=== PATIENT | female | born 1995 | race Caucasian/White ===

== ENCOUNTER 2017-03-15 14:13 | Emergency (ER) | payer OTHER ==
[2017-03-15] MEDS ORDERED: LEVETIRACETAM INJ/PF 500 MG/5 ML SDV IV ONE (16:34)
[2017-03-15] MEDS ORDERED: NORMAL SALINE 500 ML IV PRN (16:36)
[2017-03-15] MEDS ORDERED: LEVETIRACETAM 1000 MG/NACL-ISO 1,000 MG/100 ML RTUPB IV PRN (17:28)
[2017-03-15 17:55] LABS: ABSOLUTE LYMPHOCYTES (AUTO) 1.2 10^3/uL (0.5-4.7); ABSOLUTE MONOCYTES (AUTO) 0.5 10^3/uL (0.1-1.4); ABSOLUTE NEUT (AUTO) 2.6 10^3/uL (1.7-8.2); BASOPHILS % (AUTO) 0.4 % (0-2); EOSINOPHILS % (AUTO) 0.3 % (0-6); HEMATOCRIT 36.2 % (36.0-47.0); HEMOGLOBIN 12.4 g/dL (12.0-15.5); LYMPHOCYTES % (AUTO) 27.7 % (13-45); MEAN CORPUSCULAR HEMOGLOBIN 31.4 pg (27.0-33.4); MEAN CORPUSCULAR HGB CONC 34.2 g/dL (32.0-36.0); MEAN CORPUSCULAR VOLUME 92 fl (80-97); MONOCYTES % (AUTO) 10.9 % (3-13); PLATELET COUNT 194 10^3/uL (150-450); RED BLOOD COUNT 3.94 10^6/uL (3.72-5.28); RED CELL DISTRIBUTION WIDTH 12.9 % (11.5-14.0); SEGMENTED NEUTROPHILS % (AUTO) 60.7 % (42-78); TOTAL CELLS COUNTED % (AUTO) 100 %; WHITE BLOOD COUNT 4.2 10^3/uL (4.0-10.5)
[2017-03-15 18:18] LABS: ALANINE AMINOTRANSFERASE 25 U/L (5-35); ALBUMIN 4.4 g/dL (3.7-5.6); ALKALINE PHOSPHATASE 60 U/L (50-135); ANION GAP 11 (5-19); ASPARTATE AMINO TRANSFERASE 18 U/L (5-30); BILIRUBIN,DIRECT 0.2 mg/dL (0.0-0.4); BILIRUBIN,TOTAL 0.3 mg/dL (0.2-1.3); BLOOD UREA NITROGEN 12 mg/dL (7-20); CALCIUM 9.9 mg/dL (8.4-10.2); CARBON DIOXIDE 26 mmol/L (22-30); CHLORIDE 107 mmol/L (98-107); GLUCOSE 91 mg/dL (75-110); LIPASE 79.3 U/L (23-300); SODIUM 144.1 mmol/L (137-145); TOTAL PROTEIN 6.8 g/dL (6.3-8.2)
--- NOTE | 2017-03-15 18:25 | ER Document Report ---
ED General - General Chief Complaint: Lower Abdominal Pain Stated Complaint: FEVER Time Seen by Provider: 03/15/17 15:40 Mode of Arrival: Ambulatory Information source: Patient, Friend TRAVEL OUTSIDE OF THE [place] IN LAST 30 DAYS: No - HPI Notes: 21-year-old female history of epilepsy presents today with with complaints of bilateral flank pain, abdominal pain, vomited once and noticed that she felt feverish with sudden onset this morning. States she has felt better since she has been come to the emergency room. Denies any shortness of breath, chest pain , diarrhea, blurred vision, double vision, loss of vision, pelvic pain or vaginal pain. . Patient states that she takes Keppra [address] Steve Cordero manages her seizures. Patient denies any anorexia. LMP 2 weeks ago. Denies . Patient felt like she was going to have a seizure this morning however then said she felt a lot better but still wanted to get checked out. - Related Data Allergies/Adverse Reactions: Loratab Allergy (Uncoded 03/15/17 14:15) Past Medical History - General Information source: Patient, Friend - Social History Smoking Status: Unknown if Ever Smoked Family History: Reviewed & Not Pertinent Review of Systems - Review of Systems Constitutional: See HPI EENT: No symptoms reported Cardiovascular: No symptoms reported Respiratory: No symptoms reported Gastrointestinal: See HPI Genitourinary: No symptoms reported Female Genitourinary: No symptoms reported Musculoskeletal: No symptoms reported Skin: No symptoms reported Hematologic/Lymphatic: No symptoms reported Neurological/Psychological: No symptoms reported -: Yes All other systems reviewed and negative Physical Exam - Vital signs Vitals: Temp Pulse Resp BP Pulse Ox 98.3 F 66 16 106/66 100 03/15/17 14:21 03/15/17 14:21 03/15/17 14:21 03/15/17 14:21 03/15/17 14:21 - Notes Notes: PHYSICAL EXAMINATION: GENERAL: Well-appearing, well-nourished and in no acute distress. HEAD: Atraumatic, normocephalic. EYES: Pupils equal round and reactive to light, extraocular movements intact, conjunctiva are normal. ENT: Nares patent, oropharynx clear without exudates. Moist mucous membranes. NECK: Normal range of motion, supple without lymphadenopathy LUNGS: Breath sounds clear to auscultation bilaterally and equal. No wheezes rales or rhonchi. HEART: Regular rate and rhythm without murmurs ABDOMEN: Soft, RLQ pain with rebound tenderness. + McBurney's sign. Noted periumbilical pain on palpation. No guarding, no rebound. No masses appreciated. bilaterally cva tendderness. Female : deferred Musculoskeletal: Normal range of motion, no pitting or edema. No cyanosis. NEUROLOGICAL: Cranial nerves grossly intact. Normal speech, normal gait. Normal sensory, motor exams. No drift lag or dysmetria. PERRLA. Full EMOI. [employer] +2 bilaterally and equally PSYCH: Normal mood, normal affect. SKIN: Warm, Dry, normal turgor, no rashes or lesions noted. no rashes. Course - Re-evaluation Re-evalutation: Patient reevaluated. 1800- Still waiting on labs/ urine/CT. IV Medication has been initiated. 03/15/17 1800- awaiting ct labs and urine. 194 disposition given to FRANCIS Bonilla. - Vital Signs Vital signs: Temp Pulse Resp BP Pulse Ox 98.3 F 66 16 106/66 100 03/15/17 14:21 03/15/17 14:21 03/15/17 14:21 03/15/17 14:21 03/15/17 14:21 - Laboratory Result Diagrams: 03/15/17 17:35 03/15/17 17:35 Laboratory results interpreted by me: 03/15/17 17:35 Urine Blood SMALL H
[2017-03-15] MEDS ORDERED: KETOROLAC TROMETHAMINE INJ/PF 30 MG/1 ML SDV IV ONE (18:42)
[2017-03-15 19:21] LABS: APPEARANCE,URINE SLIGHTLY-CLOUDY; BILIRUBIN,URINE NEGATIVE (NEGATIVE); COLOR,URINE YELLOW; GLUCOSE, URINE NEGATIVE (NEGATIVE); KETONES,URINE NEGATIVE (NEGATIVE); LEUKOCYTE ESTERASE,URINE NEGATIVE (NEGATIVE); NITRITE,URINE NEGATIVE (NEGATIVE); PROTEIN,URINE NEGATIVE (NEGATIVE); URINE SPECIFIC GRAVITY 1.021; UROBILINOGEN,URINE NEGATIVE mg/dL (<2.0)
--- NOTE | 2017-03-15 19:27 | RADIOLOGY REPORT (SQ) ---
EXAM DESCRIPTION: CT ABD/PELVIS WITH IV ONLY COMPLETED DATE/TIME: 03/15/2017 7:18 pm REASON FOR STUDY: RLQ, umbilical pain COMPARISON: None. TECHNIQUE: CT scan of the abdomen and pelvis performed using helical scanning technique with dynamic intravenous contrast injection. No oral contrast. Images reviewed with lung, soft tissue, and bone windows. Reconstructed coronal and sagittal MPR images reviewed. Delayed images for evaluation of the urinary system also acquired. All images stored on PACS. All CT scanners at this facility use dose modulation, iterative reconstruction, and/or weight based d osing when appropriate to reduce radiation dose to as low as reasonably achievable (ALARA). [facility]: Dose Right [facility]: CareDose [facility]: Dose Right [facility]: Teradose 4D [facility]: Meusonic CONTRAST TYPE AND DOSE: contrast/concentration: Isovue 370.00 mg/ml; Total Contrast Delivered: 53.0 ml; Total Saline Delivered: 40.0 ml RENAL FUNCTION: None required. The patient is less than 50 years old. RADIATION DOSE: CT Rad equipment meets quality standard of care and radiation dose reduction techniq ues were employed. CTDIvol: NaN - NaN mGy. DLP: 0 mGy-cm.. LIMITATIONS: None. FINDINGS: LOWER CHEST: No significant findings. No nodules or infiltrates. LIVER: Normal size. No masses. No dilated ducts. SPLEEN: Normal size. No focal lesions. PANCREAS: No masses. No significant calcifications. No adjacent inflammation or peripancreatic fluid collections. Pancreatic duct not dilated. GALLBLADDER: No identified stones by CT criteria. No inflammatory changes to suggest cholecystitis. ADRENAL GLANDS: No significant masses or asymmetry. RIGHT KIDNEY AND URETER: No solid masses. No significant calcifications. No hydronephrosis or hyd roureter. LEFT KIDNEY AND URETER: No solid masses. No significant calcifications. No hydronephrosis or hydr oureter. AORTA AND VESSELS: No aneurysm. No dissection. Renal arteries, SMA, celiac without stenosis. RETROPERITONEUM: No retroperitoneal adenopathy, hemorrhage or masses. BOWEL AND PERITONEAL CAVITY: No masses or inflammatory changes. No free fluid or peritoneal masses. Constipation. APPENDIX: Not visualized. PELVIS: No mass. Minimal free fluid. . Normal bladder. ABDOMINAL WALL: No masses. No hernias. BONES: No significant or acute findings. OTHER: No other significant finding. IMPRESSION: Marked constipation. Minimal free fluid in the pelvis. TECHNICAL DOCUMENTATION: JOB ID: [id number] Quality ID # [id number]: Final reports with documentation of one or more dose reduction techniques (e.g., Au tomated exposure control, adjustment of the mA and/or kV according to patient size, use of iterative reconstruction technique) 2010 [employer]- All Rights Reserved
[2017-03-15 22:54] VITALS: BP 99/61
== END 2017-03-15 22:54 | disposition home or self-care (01) ==
LOC: ER 14:13
DX: R10.84 Generalized abdominal pain (principal); R50.9 Fever, unspecified; R11.10 Vomiting, unspecified; Z79.899 Other long term (current) drug therapy
CPT/HCPCS: 99284; 96361; 96375; 96365; 36415; 87086; 80177; 84702; 83690; 85025; 87088; 80053; 81001; 74177; J1885; J7040; J1953

== ENCOUNTER 2017-10-26 23:50 | Emergency (ER) | payer OTHER ==
[2017-10-27 00:33] LABS: APPEARANCE,URINE CLEAR; BILIRUBIN,URINE NEGATIVE (NEGATIVE); COLOR,URINE STRAW; GLUCOSE, URINE NEGATIVE (NEGATIVE); KETONES,URINE NEGATIVE (NEGATIVE); LEUKOCYTE ESTERASE,URINE NEGATIVE (NEGATIVE); NITRITE,URINE NEGATIVE (NEGATIVE); PROTEIN,URINE NEGATIVE (NEGATIVE); URINE SPECIFIC GRAVITY 1.006; UROBILINOGEN,URINE NEGATIVE mg/dL (<2.0)
[2017-10-27] MEDS ORDERED: LEVETIRACETAM 500 MG TABLET PO ONE (02:08)
[2017-10-27 02:15] LABS: ABSOLUTE LYMPHOCYTES (AUTO) 1.5 10^3/uL (0.5-4.7); ABSOLUTE MONOCYTES (AUTO) 0.7 10^3/uL (0.1-1.4); ABSOLUTE NEUT (AUTO) 5.3 10^3/uL (1.7-8.2); BASOPHILS % (AUTO) 0.4 % (0-2); EOSINOPHILS % (AUTO) 0.4 % (0-6); HEMOGLOBIN 12.5 g/dL (12.0-15.5); LYMPHOCYTES % (AUTO) 19.6 % (13-45); MEAN CORPUSCULAR HGB CONC 33.8 g/dL (32.0-36.0); MEAN CORPUSCULAR VOLUME 92 fl (80-97); MONOCYTES % (AUTO) 9.5 % (3-13); PLATELET COUNT 227 10^3/uL (150-450); RED BLOOD COUNT 4.04 10^6/uL (3.72-5.28); RED CELL DISTRIBUTION WIDTH 12.7 % (11.5-14.0); SEGMENTED NEUTROPHILS % (AUTO) 70.1 % (42-78); TOTAL CELLS COUNTED % (AUTO) 100 %; WHITE BLOOD COUNT 7.5 10^3/uL (4.0-10.5)
[2017-10-27 02:30] LABS: ALANINE AMINOTRANSFERASE 24 U/L (9-52); ALBUMIN 4.6 g/dL (3.5-5.0); ALKALINE PHOSPHATASE 79 U/L (38-126); ANION GAP 13 (5-19); ASPARTATE AMINO TRANSFERASE 20 U/L (14-36); BILIRUBIN,DIRECT 0.2 mg/dL (0.0-0.4); BILIRUBIN,TOTAL 0.4 mg/dL (0.2-1.3); BLOOD UREA NITROGEN 8 mg/dL (7-20); CARBON DIOXIDE 25 mmol/L (22-30); CHLORIDE 106 mmol/L (98-107); GLUCOSE 102 mg/dL (75-110); SODIUM 144.2 mmol/L (137-145); TOTAL PROTEIN 7.6 g/dL (6.3-8.2)
--- NOTE | 2017-10-27 03:45 | RADIOLOGY REPORT (SQ) ---
EXAM DESCRIPTION: US PELVIS COMPLETED DATE/TME: 10/27/2017 01:40 CLINICAL HISTORY: 22 years Female, right sided pain Comparison: None. Technique: Transvaginal. LIMITATIONS: None. FINDINGS: 8-cm uterus, 0.9-cm endometrial stripe thickness, 2.5-cm cervical length, 3.1-cm right ovary, and 3.2-cm left ovary appear normal in size, shape, echotexture, and vascularity. Moderate free fluid in the posterior cul-de-sac and left adnexa. IMPRESSION: Moderate free pelvic fluid.
--- NOTE | 2017-10-27 04:04 | ER Document Report ---
ED General - General Chief Complaint: Abdominal Pain Stated Complaint: RIGHT SIDE/BACK PAIN/VOMITING Time Seen by Provider: 10/27/17 01:33 Notes: Patient is a 22-year-old female presents with complaint of 1 week of pain that is on her right back and right lower quadrant. She says it is sharp pain. Said it is waxing and waning. She denies any dysuria. No urinary frequency. No abnormal vaginal discharge or bleeding. monogamous and . No pain during sex. Pain is not worse with eating. She did vomit but she said those when the pain was more intense. She has not seen a doctor about this. She says she does have a family history of "gynecological issues. Said her mom had a hysterectomy but does not know exactly why. Patient has not had any abdominal surgeries herself. TRAVEL OUTSIDE OF THE [place] IN LAST 30 DAYS: No - Related Data Allergies/Adverse Reactions: Loratab Allergy (Uncoded 03/15/17 14:15) Past Medical History - Social History Smoking Status: Never Smoker Frequency of alcohol use: None Drug Abuse: None Family History: Reviewed & Not Pertinent Patient has suicidal ideation: No Patient has homicidal ideation: No Renal/ Medical History: Denies: Hx Peritoneal Dialysis Past Surgical History: Reports: Hx Tonsillectomy Review of Systems - Review of Systems Notes: My Normal Review Basic REVIEW OF SYSTEMS: CONSTITUTIONAL : Denies fever, chills, or sweats. Denies recent illness. GASTROINTESTINAL: Pain in right lower portion of abdomen. GENITOURINARY: Denies difficulty urinating, painful urination, burning, frequency, or blood in urine. FEMALE GENITOURINARY: Denies vaginal bleeding, abnormal or irregular periods. MUSCULOSKELETAL: Mild pain to right lower back. SKIN: Denies rash or skin lesions. NEUROLOGICAL: Denies altered mental status or loss of consciousness. Denies headache. Denies weakness or paralysis or loss of use of either side. Denies problems with gait or speech. Denies sensory or motor loss. ALL OTHER SYSTEMS REVIEWED AND NEGATIVE. Physical Exam - Vital signs Vitals: Temp Pulse Resp BP Pulse Ox 98.9 F 77 14 110/67 99 10/27/17 00:07 10/27/17 00:07 10/27/17 00:07 10/27/17 00:07 10/27/17 00:07 - Notes Notes: General Appearance: Well nourished, alert, cooperative, no acute distress, no obvious discomfort. Well-appearing. Vitals: reviewed, See vital signs table. Head: no swelling or tenderness to the head Eyes: PERRL, EOMI, Conjuctiva clear Mouth: No decreasd moisture Lungs: No wheezing, No rales, No rhonci, No accessory muscle use, good air exchange bilaterally. Heart: Normal rate, Regular rythm, No murmur, no rub Abdomen: Normal BS, soft, No rigidity, is difficult to produce any pain with palpation of abdomen. After which very hard over the right lower quadrant right upper pelvic region to produce any pain in it is just mild., No guarding, no rebound, no abdominal masses, no organomegaly Extremities: Normal peripheral pulses. No edema. Skin: warm, dry, appropriate color, no rash Neuro: speech clear, oriented x 3, normal affect, responds appropriately to questions. Course - Re-evaluation Re-evalutation: 10/27/17 06:57 Patient was discharged home. She looks well on exam. Her ultrasound showed moderate free fluid in her pelvis. This could represent a recent ruptured ovarian cyst. Informed her it is not exactly clear 100% what causes her pain. It could be a recent ruptured ovarian cyst. Wonder that she should follow-up with gynecology for reevaluation. I informed her if pain worsens, she has recurrent vomiting, or if she has any fever she must return to ER immediately. I do not suspect appendicitis as it is very difficult to reproduce any of her pain on exam, she has no leukocytosis, and her pains been there for 1 week. Dictation of this chart was performed using voice recognition software; therefore, there may be some unintended grammatical errors. - Vital Signs Vital signs: Temp Pulse Resp BP Pulse Ox 98 F 66 16 109/58 L 99 10/27/17 04:25 10/27/17 04:25 10/27/17 04:25 10/27/17 04:25 10/27/17 04:25 - Laboratory Result Diagrams: 10/27/17 02:03 10/27/17 02:03 Discharge - Discharge Clinical Impression: Abdominal pain Qualifiers: Abdominal location: right lower quadrant Qualified Code(s): R10.31 - Right lower quadrant pain Condition: Good Disposition: HOME, SELF-CARE Additional Instructions: Please take tylenol and Motrin for the pain. [facility]5 days for reevaluation. Please return to the ER immediately if you develop any abnormal vaginal discharge, worsening pain, abnormal vaginal bleeding, fevers or feel that you are worsening in any way. Forms: Return to Work Referrals: NAHUM GUAMAN MD [ACTIVE STAFF] - Follow up in 3-5 days
[2017-10-27 04:26] VITALS: BP 109/58
== END 2017-10-27 04:25 | disposition home or self-care (01) ==
LOC: ER 23:50
DX: R10.31 Right lower quadrant pain (principal); R18.8 Other ascites; M54.5 Low back pain; R11.10 Vomiting, unspecified; Z88.5 Allergy status to narcotic agent
CPT/HCPCS: 36415; 76830; 80053; 81001; 81025; 85025; 93976; 99284